=== PATIENT | female | born 1990 | race American Indian/Alaskan Native ===

== ENCOUNTER 2019-04-03 18:25 | Inpatient (IN) | payer MEDICAID ==
[2019-04-03] MEDS ORDERED: MINERAL OIL PO PRN (22:34)
[2019-04-03] MEDS ORDERED: CERVIDIL VG ONE (23:00)
[2019-04-03] MEDS ORDERED: LACTATED RINGERS 1,000 ML IV SCH (23:00)
[2019-04-03 23:31] LABS: Hematocrit 30.9 % (30.3-42.9); Hemoglobin 10.4 gm/dl (10.1-14.3); Mean Corpuscular HGB Conc 34 % (30-34); Mean Corpuscular Volume 91 fl (79-97); Platelet Count 182 K/mm3 (140-440); Red Blood Count 3.41 M/mm3 (3.65-5.03); Red Cell Distribution Width 14.9 % (13.2-15.2)
[2019-04-04] MEDS ORDERED: SUBLIMAZE IV ONE (04:27)
[2019-04-04] MEDS: STADOL IV PRN ×2 (05:32→08:57)
[2019-04-04] MEDS ORDERED: PITOCin/NS 30 UNIT/500ML 30 UNITS/500 ML BAG IV SCH (09:00)
[2019-04-04] MEDS ORDERED: NARCAN 0.4 MG/1 ML IV PRN (09:00)
[2019-04-04] MEDS ORDERED: XYLOCAINE 2% INFILTRATI NR (09:00)
[2019-04-04] MEDS ORDERED: BRETHINE SUB-Q PRN (09:00)
[2019-04-04] MEDS ORDERED: PITOCin/NS 20 UNIT/1000ML DRIP 20 UNITS/1,000 ML BAG IV SCH (09:00)
[2019-04-04] MEDS ORDERED: MINERAL OIL PO PRN (09:00)
[2019-04-04] MEDS ORDERED: PHENERGAN PO PRN ×2 (09:00→17:59)
[2019-04-04] MEDS ORDERED: BRETHINE IVP PRN (09:00)
[2019-04-04] MEDS: LACTATED RINGERS 1,000 ML IV SCH ×3 (09:07→16:21)
--- NOTE | 2019-04-04 10:24 | History and Physical Report ---
History of Present Illness Date of examination: 04/04/19 Date of admission: 04/03/19 18:25 Chief complaint: Here for induction History of present illness: The patient is a 28 yo at 38.1 wks EGA. She presents from [facility] office for oligohydramnios, MEGHNA 5 cm. She reports positive movement, denies LOF or vaginal bleeding. She has received care with [facility] since 20 weeks EGA. She has a history of depression and anxiety, twin gestation with IUFD at 30 weeks in a previous , LSIL pap with +HPV, and preeclampsia in a previous . Her course has been complicated by Rubella non-immune status, near-syncopal episodes, and an OB colpo that was normal. Past History Past Medical History: no pertinent history Past Surgical History: no surgical history [employer] History: abnormal PAP smear Social history: no significant social history - Obstetrical History Expected Date of Delivery: 04/17/19 Actual Gestation: 38 Week(s) 1 Day(s) : 3 Para: 1 Hx # Term Pregnancies: 1 Number of Pregnancies: 1 Spontaneous Abortions: 1 Number of Living Children: 1 Medications and Allergies Allergies Allergy/AdvReac Type Severity Reaction Status Date / Time No Known Allergies Allergy Verified 04/03/19 18:52 Home Medications Medication Instructions Recorded Confirmed Last Taken Type Multivitamin Tablet 1 tab PO QAM 04/04/19 04/04/19 1 Day Ago History ~04/03/19 1 TAB Active Meds: Active Medications Butorphanol Tartrate (Stadol) 2 mg IV Q2H PRN PRN Reason: Labor Pain Last Admin: 04/04/19 08:57 Dose: 2 mg Documented by: Ephedrine Sulfate (Ephedrine Sulfate) 10 mg IV Q2M PRN PRN Reason: Hypotension Oxytocin/Sodium Chloride (Pitocin/Ns 20 Unit/1000ml Drip) 20 units in 1,000 mls @ 125 mls/hr IV DIRECT TARI Oxytocin/Sodium Chloride (Pitocin/Ns 30 Unit/500ml) 30 units in 500 mls @ 1 mls/hr IV TITR TARI; Protocol Oxytocin/Sodium Chloride (Pitocin/Ns 30 Unit/500ml) 30 units in 500 mls @ 2 mls/hr IV TITR TARI; Protocol Lactated Ringer's (Lactated Ringers) 1,000 mls @ 125 mls/hr IV DIRECT TARI Last Admin: 04/04/19 09:07 Dose: 125 mls/hr Documented by: Lidocaine (Xylocaine 2%) 20 ml INFILTRATI ONCE NR Stop: 04/05/19 08:59 Mineral Oil (Mineral Oil) 30 ml PO QHS PRN PRN Reason: Constipation Naloxone HCl (Narcan 0.4 Mg/1 Ml) 0.1 mg IV Q2MIN PRN PRN Reason: Res Rate </= 8 or 02 SAT < 92% Promethazine HCl (Phenergan) 25 mg PO Q6H PRN PRN Reason: Nausea And Vomiting Terbutaline Sulfate (Brethine) 0.25 mg SUB-Q ONCE PRN PRN Reason: Hyperstimulation/Hypertonicity Terbutaline Sulfate (Brethine) 0.25 mg IVP ONCE PRN PRN Reason: Hyperstimulation/Hypertonicity Review of Systems All systems: negative Cardiovascular: no chest pain, no shortness of breath Genitourinary: no vaginal bleeding, no leakage of fluid - Vital Signs Vital signs: Vital Signs Pulse BP 84 100/60 04/03/19 18:50 04/03/19 18:50 Temp Pulse Resp BP Pulse Ox 98.6 F 93 H 16 115/56 04/04/19 08:18 04/04/19 09:25 04/04/19 08:57 04/04/19 09:25 - Physical Exam Cardiovascular: Regular rate, Normal S1, Normal S2, No murmurs Lungs: Positive: Clear to auscultation, Normal air movement Abdomen: Positive: normal appearance (gravid), soft Genitourinary (Female): Positive: normal external genitalia, normal perenium Uterus: Positive: enlarged (gravid), normal contour Anus/Rectum: Positive: normal perianal skin Extremities: Positive: normal - Obstetrical FHR: auscultation normal, category 1 Uterine Contraction Monitor Mode: External Cervical Dilatation: 4 Cervical Effacement Percentage: 50 station: -3 Uterine Contraction Pattern: Irregular Results Result Diagrams: 04/03/19 22:20 Abnormal lab results 04/03/19 Range/Units 22:20 RBC 3.41 L (3.65-5.03) M/mm3 All other labs normal. Assessment and Plan Oligohydramnios at term Continue IOL, removed Cervidil at 0825, initiate Pitocin at 1025 Anticipate MMR Epidural as requested
[2019-04-04] MEDS: PITOCin/NS 30 UNIT/500ML 30 UNITS/500 ML BAG IV SCH ×3 (10:55→16:20)
[2019-04-04] MEDS ORDERED: NARCAN 2 MG/2 ML IV PRN (12:54)
--- NOTE | 2019-04-04 12:56 | Anesthesia Consultation ---
Anesthesia Consult and Med Hx Date of service: 04/04/19 - Airway Anesthetic Teeth Evaluation: Good ROM Head & Neck: Adequate Mental/Hyoid Distance: Adequate Mallampati Class: Class II Intubation Access Assessment: Good - Pulmonary Exam CTA: Yes - Cardiac Exam Cardiac Exam: RRR - Pre-Operative Health Status ASA Pre-Surgery Classification: ASA2, Emergency Proposed Anesthetic Plan: Epidural - Pulmonary Hx Asthma: No COPD: No Hx Pneumonia: No - Cardiovascular System Hx Hypertension: No - Central Nervous System Hx Seizures: No Hx Psychiatric Problems: No - Endocrine Hx Renal Disease: No Hx End Stage Renal Disease: No Hx Hypothyroidism: No Hx Hyperthyroidism: No - Hematic Hx Anemia: No Hx Sickle Cell Disease: No - Other Systems Hx Alcohol Use: No
[2019-04-04] MEDS ORDERED: SUBLIMAZE ONE (12:59)
[2019-04-04] MEDS ORDERED: MARCAINE 0.25% INFILTRATI ONE (12:59)
[2019-04-04] MEDS ORDERED: fentaNYL-BUPIV 2 MCG/ML-0.125% 200 MCG/100 ML BAG EPIDURAL SCH (13:00)
--- NOTE | 2019-04-04 13:08 | Event Note ---
Date: 04/04/19 Pt is reporting more pain with contractions. She requests an epidural. SVE 4.5//-2 Offered AROM. Pt elects for AROM after epidural placement. Anesthesia notified.
[2019-04-04] MEDS ORDERED: BENADRYL PO PRN (17:59)
[2019-04-04] MEDS ORDERED: LANSINOH TP PRN (17:59)
[2019-04-04] MEDS ORDERED: PHENERGAN PR PRN (17:59)
[2019-04-04] MEDS ORDERED: ZOFRAN IV PRN (17:59)
[2019-04-04] MEDS ORDERED: METHERGINE PO PRN (17:59)
[2019-04-04] MEDS ORDERED: DERMOPLAST TP PRN (17:59)
[2019-04-04] MEDS ORDERED: DULCOLAX PR PRN (17:59)
[2019-04-04] MEDS ORDERED: MILK OF MAGNESIA PO PRN (17:59)
[2019-04-04] MEDS ORDERED: TUCKS PAD TP PRN (17:59)
[2019-04-04] MEDS ORDERED: CYTOTEC PR PRN (17:59)
[2019-04-04] MEDS ORDERED: SODIUM CHLORIDE FLUSH SYRINGE 10 ML IV NR (18:00)
--- NOTE | 2019-04-04 18:10 | Procedure Note ---
OB Delivery Note - Delivery Date of Delivery: 04/04/19 Surgeon: KRISTIN GOEL ([facility]) Estimated blood loss: 300cc - Vaginal Delivery presentation: vertex Delivery position: OA Intrapartum events: none Delivery induction: cervidil Delivery augmentation: rupture of membranes, pitocin Delivery monitor: external FHT, external uterine Route of delivery: Delivery placenta: spontaneous Delivery cord: nuchal cord, 3 umbilical vessels Episiotomy: none Delivery laceration: none Anesthesia: epidural Delivery comments: Excellent maternal effort resulted in of viable male infant at 1734. Head restituted LOT, nuchal cord reduced on perineum. Shoulders followed with gentle traction. Infant to maternal abdomen, stimulated and dried. Apgars 8/9. Cord clamped and cut by mother after 70 seconds of life, to warmer for evaluation due to irregular respiratory effort. Placenta delivered promptly, spontaneously and intact. Hemostatic perineal abrasion noted. Substernal retractions noted after 2 minutes of life. NICU notified immediately. Infant temp at that time was 100.1 degrees F. Bulb suction of mouth and nares perform ed. Placed infant in prone position to encourage postural drainage, performed percussion on back with mask. Pulse ox sensor applied to right hand, did not have pulse oximeter machine available. NICU at infant warm, I provided report. After thorough chest physiotherapy, cleared of mucus and retractions absent. weighed (7lb 15 oz) and to maternal chest. - Infant A at 1 minute: 8 at 5 minutes: 9 Gender: Male
--- NOTE | 2019-04-04 19:10 | Post Anesthesia Evaluation ---
- Post Anesthesia Evaluation Patient Participated: Yes Airway Patent: Yes Stable Respiratory Function: Yes Nausea/Vomiting: No Temp > 96.8F: Yes Pain Manageable: Yes Adequeate Hydration: Yes Anesthesia Complications: No Block Receding Appropriately: Yes Patient on Ventilator: No
[2019-04-04] MEDS: IBUPROFEN PO SCH ×2 (19:48→23:41)
[2019-04-04] MEDS: FEOSOL PO SCH (23:42)
[2019-04-04] MEDS: COLACE PO SCH (23:42)
[2019-04-05] MEDS: TYLENOL PO PRN ×2 (01:16→08:30)
[2019-04-05] MEDS: IBUPROFEN PO SCH ×4 (05:39→23:07)
[2019-04-05 06:18] LABS: Hemoglobin 9.8 gm/dl (10.1-14.3)
--- NOTE | 2019-04-05 08:16 | Progress Note ---
Assessment and Plan A/P PPD1, VSS Anemia- initiate ferrous sulfate Pain poorly controlled- Percocet PRN and scheduled Motrin Discharge to home tomorrow Subjective - Subjective Date of service: 04/05/19 Principal diagnosis: Interval history: The patient is a 28 yo on PPD1 s/p of viable male infant. Patient reports: appetite normal, voiding normally, pain poorly controlled, ambulating normally (with pain) : doing well, nursing well Objective - Vital Signs Latest vital signs: Vital Signs Temp Pulse Resp BP BP Pulse Ox 04/05/19 05:39 20 04/05/19 01:16 20 04/05/19 01:02 98.6 F 72 20 116/73 97 04/04/19 23:41 20 04/04/19 20:57 98.7 F 76 20 100 04/04/19 20:56 75 20 117/61 100 04/04/19 19:48 16 04/04/19 19:17 82 119/67 04/04/19 18:47 78 117/62 04/04/19 18:32 86 113/58 04/04/19 18:17 89 113/61 04/04/19 18:05 97 H 120/65 04/04/19 17:47 113 H 121/62 04/04/19 17:36 94 H 100 04/04/19 17:31 120 H 90 04/04/19 17:26 117 H 100 04/04/19 17:21 114 H 100 04/04/19 17:16 105 H 121/71 100 04/04/19 17:12 94 H 125/79 04/04/19 17:11 91 H 100 04/04/19 17:06 96 H 126/74 100 04/04/19 17:01 92 H 99 04/04/19 16:58 81 124/58 04/04/19 16:56 90 100 04/04/19 16:52 88 134/63 84 04/04/19 16:51 111 H 86 04/04/19 16:46 94 H 123/58 100 04/04/19 16:41 95 H 133/77 100 04/04/19 16:36 94 H 132/74 98 04/04/19 16:31 97 H 123/66 99 04/04/19 16:26 92 H 135/70 100 04/04/19 16:21 98.5 F 94 H 118/65 100 04/04/19 16:16 98 H 117/67 100 04/04/19 16:13 91 H 115/65 04/04/19 16:11 95 H 100 04/04/19 16:07 90 116/63 04/04/19 16:06 88 98 04/04/19 16:02 85 116/63 04/04/19 16:01 85 98 04/04/19 15:57 85 110/60 04/04/19 15:56 87 99 04/04/19 15:52 78 106/59 04/04/19 15:51 84 99 04/04/19 15:47 86 122/59 04/04/19 15:46 88 100 04/04/19 15:43 100 H 125/65 04/04/19 15:41 85 99 04/04/19 15:36 93 H 106/57 99 04/04/19 15:31 91 H 114/60 99 04/04/19 15:27 86 110/60 04/04/19 15:26 82 99 04/04/19 15:22 74 100/59 04/04/19 15:21 76 98 04/04/19 15:17 79 105/58 04/04/19 15:16 83 99 04/04/19 15:12 75 105/55 04/04/19 15:11 79 98 04/04/19 15:06 79 107/59 99 04/04/19 15:02 84 111/57 04/04/19 15:01 89 110/60 100 04/04/19 14:58 80 106/56 04/04/19 14:56 86 99 04/04/19 14:51 76 101/57 99 04/04/19 14:46 76 101/57 98 04/04/19 14:43 75 103/58 04/04/19 14:41 72 99 04/04/19 14:36 87 110/66 100 04/04/19 14:31 85 106/61 99 04/04/19 14:26 85 110/63 99 04/04/19 14:22 88 110/60 04/04/19 14:21 82 99 04/04/19 14:17 81 105/57 04/04/19 14:16 83 98 04/04/19 14:11 91 H 106/56 98 04/04/19 14:08 93 H 101/55 04/04/19 14:06 97 H 99 04/04/19 14:03 102 H 108/58 04/04/19 14:01 90 99 04/04/19 13:57 85 121/56 04/04/19 13:56 87 99 04/04/19 13:52 88 115/62 04/04/19 13:51 89 99 04/04/19 13:46 114 H 103/55 100 04/04/19 13:43 90 112/62 04/04/19 13:41 101 H 98 04/04/19 13:37 90 123/65 04/04/19 13:36 90 100 04/04/19 13:31 89 99 04/04/19 13:29 111 H 103/56 04/04/19 13:27 103 H 105/61 04/04/19 13:26 87 99 04/04/19 13:25 101 H 111/66 04/04/19 13:23 116 H 105/63 04/04/19 13:21 98 H 109/64 97 04/04/19 13:19 113 H 102/61 04/04/19 13:18 104 H 90/55 04/04/19 13:16 97 H 104/58 98 04/04/19 13:13 93 H 114/58 04/04/19 13:12 107 H 104/56 04/04/19 13:11 102 H 99 04/04/19 13:10 102 H 110/61 04/04/19 13:06 115 H 99 04/04/19 13:02 97.3 F L 90 18 124/69 100 04/04/19 13:01 111 H 124/69 99 04/04/19 12:56 105 H 98 04/04/19 12:49 106 H 129/75 04/04/19 12:21 104 H 103/63 04/04/19 11:49 96 H 115/70 04/04/19 11:20 104 H 116/73 04/04/19 10:26 88 102/59 04/04/19 09:25 93 H 115/56 04/04/19 09:04 94 H 90/53 04/04/19 08:57 16 04/04/19 08:24 85 117/67 04/04/19 08:18 98.6 F 95 H 16 109/65 109/65 Intake and Output 04/04/19 04/05/19 04/05/19 23:59 07:59 15:59 Intake Total 2440.483 Output Total 700 Balance 1740.483 Intake: IV 2040.483 Lactated Ringers 1,000 ml 589.583 @ 125 mls/hr IV DIRECT TARI Rx#:[id number] PITOCin/NS 20 UNIT/1000ML 925 DRIP 20 units In 1,000 ml @ 125 mls/hr IV DIRECT TARI Rx#:[id number] PITOCin/NS 30 UNIT/500ML 25.9 30 units In 500 ml @ 1 MILLIUNITS/MIN 1 mls/hr IV TITR TARI Rx#:[id number] PITOCin/NS 30 UNIT/500ML 500 30 units In 500 ml @ 2 mls/hr IV TITR TARI Rx#: [id number] Oral 400 Output: Urine 700 Indwelling Catheter 300 Void 400 Other: Total, Intake Amount 400 Total, Output Amount 400 # Voids Void 1 Estimated Blood Loss 300 - Exam Breasts: Present: normal Cardiovascular: Present: Regular rate, Normal S1, Normal S2, No murmurs Lungs: Present: Clear to auscultation, Normal air movement Abdomen: Present: normal appearance, soft, tenderness (to palpation). Absent: distention, guarding Uterus: Present: normal, firm, fundal height at umbilicus Extremities: Present: normal - Labs Labs: Abnormal lab results 04/05/19 Range/Units 05:24 Hgb 9.8 L (10.1-14.3) gm/dl Hct 29.0 L (30.3-42.9) %
--- NOTE | 2019-04-05 08:22 | Discharge Summary ---
Providers - Providers Date of Admission: 04/03/19 18:25 Date of discharge: 04/06/19 Attending physician: AARON WAY MD Primary care physician: AARON WAY MD Hospitalization Reason for admission: induction of labor (for oligohydramnios) Delivery: Episiotomy: none Laceration: none Other procedures: none complications: none Discharge diagnosis: IUP at term delivered baby: male Hospital course: Pt was admitted for IOL for oligohydramnios at 38.1 wks EGA. She had a and uncomplicated hospital course. She was Rubella non-immune, MMR ordered. Condition at discharge: Good Disposition: DC-01 TO HOME OR SELFCARE Plan - Discharge Medications Prescriptions: Ferrous Sulfate [Ferrous Sulfate 324 MG] 324 mg PO BID #60 tablet. Ibuprofen [Motrin] 600 mg PO Q6H #120 - Provider Discharge Summary Activity: routine, no sex for 6 weeks, no heavy lifting 4 weeks, no strenuous exercise Diet: routine Instructions: routine Additional instructions: [] Smoking cessation referral if applicable(refer to patient education folder for contact #) [] Refer to [facility] Booklet Call your doctor immediately for: * Fever > 100.5 * Heavy vaginal bleeding ( >1 pad per hour) * Severe persistent headache * Shortness of breath * Reddened, hot, painful area to leg or breast * Drainage or odor from incision. * Keep incision clean and dry at all times and follow doctor's instructions regarding bathing/showering - Follow up plan Follow up: AARON WAY MD [Primary Care Provider] - 6 Weeks
[2019-04-05] MEDS: PRENATAL VITAMIN PO SCH (09:58)
[2019-04-05] MEDS: FEOSOL PO SCH ×2 (09:58→21:24)
[2019-04-05] MEDS: PERCOCET 5/325 PO PRN ×3 (09:58→23:07)
[2019-04-05] MEDS: COLACE PO SCH ×2 (09:58→21:24)
[2019-04-05] MEDS ORDERED: M-M-R II VACCINE SUB-Q ONE (17:59)
[2019-04-06] MEDS: IBUPROFEN PO SCH ×2 (05:07→12:58)
[2019-04-06] MEDS: PRENATAL VITAMIN PO SCH (10:37)
[2019-04-06] MEDS: FEOSOL PO SCH (10:37)
[2019-04-06] MEDS: COLACE PO SCH (10:37)
[2019-04-06] MEDS: PERCOCET 5/325 PO PRN (10:40)
[2019-04-06] MEDS ORDERED: M-M-R II VACCINE SUB-Q ONE (17:46)
[2019-04-06 19:26] VITALS: BP 96/57
== END 2019-04-06 17:50 | disposition home or self-care (01) | DRG 775 ==
LOC: LD 18:25 → OB 04-04 20:44
PROVIDERS: ADMIT Obstetrics & Gynecology; ATTEND Obstetrics & Gynecology
PROC: 10E0XZZ Delivery of Products of Conception, External Approach (ICD-10-PCS; principal; 2019-04-04)
PROC: 3E0P7VZ Introduction of Hormone into Female Reproductive, Via Natural or Artificial Opening (ICD-10-PCS; 2019-04-04)
PROC: 3E0R3BZ Introduction of Anesthetic Agent into Spinal Canal, Percutaneous Approach (ICD-10-PCS; 2019-04-04)
PROC: 00HU33Z Insertion of Infusion Device into Spinal Canal, Percutaneous Approach (ICD-10-PCS; 2019-04-04)
PROC: 10907ZC Drainage of Amniotic Fluid, Therapeutic from Products of Conception, Via Natural or Artificial Opening (ICD-10-PCS; 2019-04-04)
PROC: 3E0234Z Introduction of Serum, Toxoid and Vaccine into Muscle, Percutaneous Approach (ICD-10-PCS; 2019-04-05)
DX: O41.03X0 Oligohydramnios, third trimester, not applicable or unspecified (principal); O99.02 Anemia complicating childbirth; D64.9 Anemia, unspecified; O69.1XX0 Labor and delivery complicated by cord around neck, with compression, not applicable or unspecified; O99.344 Other mental disorders complicating childbirth; F41.8 Other specified anxiety disorders; Z3A.38 38 weeks gestation of pregnancy; Z37.0 Single live birth; Z79.899 Other long term (current) drug therapy; Z23 Encounter for immunization
CPT/HCPCS: 36415; 59200; 85014; 85018; 85027; 86592; 86850; 86900; 86901; 90707; G0378; A6250; J0595; J2590; J3010; J7120